=== PATIENT | female | born 1950 | race Caucasian/White ===

== ENCOUNTER 2016-08-03 06:52 | Outpatient (CLI) | payer MEDICARE, OTHER ==
[~2016-08-03] VITALS: Ht 160 cm; Wt 85.6 kg
--- NOTE | ~2016-08-03 | CATH ---
Cardiac Diagnostic Report Demographics Patient Name JARETH Morales Gender Female Date of 1950 Age 66 year(s) Patient Number [id number] Date of Study 08/03/2016 Visit Number [id number] Room Number G63[address] [place] [id number] Ht 160.02 cm Wt 85.6 kg Referring Marii AGUERO Primary Physician Physician Performing [facility] Secondary Physician Physician Angie MCMULLEN Diagnostic [facility] Assisting Physician Physician Angie MCMULLEN Interventional Physician Analysis Analyst Physician Findings and Conclusions Diagnostic Findings and Conclusion Mild non-obstructive CAD. 20% mid RCA stenosis. Proximal LAD stent patent. Diagnostic Recommendations Patient will be discharged later today. Follow up visit in 4 weeks at [facility] . Continue current medications. Patient has been instructed to not lift anything more than 5 pounds for 1 week. Optimize LV systolic function. Aggressive risk factor management. Aggressive medical therapy for coronary artery disease. Cardiac diet . Optimization of medical therapy as an outpatient. Procedure Description The patient was brought to the diagnostic cardiac catheterization-EP laboratory in the fasting, non-sedated state. Informed consent was obtained in the written and verbal form after the risks and benefits were explained. The patient had no further questions and agreed to proceed. The planned puncture-incision site(s) were shaved and prepped with ChloraPrep and draped in the usual sterile manner. Conscious sedation and supplemental oxygen were delivered by a registered nurse under physician guidance. Surface ECG rhythm, blood pressure measurement, and pulse oximetry were monitored throughout the procedure. Arterial access. The access site was infiltrated with lidocaine. The vessel was entered with the Seldinger technique. A sheath was advanced into the vessel and used for catheter placement. Selective left coronary angiography. A catheter was advanced into the left coronary vessel ostium under Fluoroscopic guidance. Contrast was injected by hand. Images were obtained in multiple projections. Selective right coronary angiography. A catheter was advanced into the right coronary vessel ostium under fluoroscopic guidance. Contrast was injected by hand. Images were obtained in multiple projections. Left heart catheterization. A catheter was advanced across the aortic valve to the left ventricle under fluoroscopic guidance. Resting hemodynamics were obtained. Arterial artery hemostasis was achieved. The patient was transferred to a regular nursing floor via cart accompanied by a nurse. The patient left the laboratory in stable condition. Procedure Procedure Type Diagnostic procedure:Angiography:, Coronary Angios w/[facility] Indications: Unstable angina. The procedure was explained in detail to the patient. Risks, complications and alternative treatments were reviewed. Written consent was obtained. Medications Reviewed with Patient prior to Procedure. Angiographic Findings Dominance: Right Cardiac Arteries and Lesion Findings LMCA: Normal (0% Stenosis). LAD: Normal (0% Stenosis).Diag normal.There is a previous stent on Prox LAD. LCx: Minor Luminal Irregularities.OM mild luminal irregularities. RCA: Single stenosis.PL normal. PDA normal. Lesion on Mid RCA: Mid subsection.25% stenosis . Coronary Tree Procedure Data Procedure Date Date: 08/03/2016Start: 09:08 AMEnd: 09:35 AM Entry Locations - Retrograde Percutaneous access was performed through the Right Radial artery (Primary location). A 6 Fr sheath was inserted. Hemostasis was successfully obtained using Mechanical Compression. Closure Comments: 14 ml of air in R. Band by Taye Figueredo.. Procedure Medications Order and Administration + + + + + !Time !Medication !Dosage !Route ! + + + + + !08/03/2016 08:54 AM !Oxygen !2 l/min !NC ! + + + + + !08/03/2016 09:09 AM !0.9% NaCl !500 ml !I.V. bolus ! + + + + + !08/03/2016 09:11 AM !Radial Verapamil !2.5 mg !I.A. ! + + + + + !08/03/2016 09:12 AM !Heparin (ACC_3) !5000 units !I.V. bolus ! + + + + + !08/03/2016 09:14 AM !Versed !1 mg !I.V. ! + + + + + Devices Used - A5 Fr. BS JR 4 Diag. Catheterwas used for:Right coronary angiography. - A5 Fr. BS JL 3.5 Diag. Catheterwas used for:Left coronary angiography. Contrast Material - Isovue 57381 ml Fluoroscopy Time: Diagnostic: 2:12 minutes. Total: 2:12 minutes. Fluoroscopy Dose: Diagnostic: 669 mGy. Total: 669 mGy. Estimated Blood Loss: 10 ml. Medical History Allergies - Other:(Ranexa). - Tape. Risk Factors The patient risk factors include:prior PCI on 09/07/2010;obesity, physical activity, treated hypercholesterolemia, treated hypertension, family history of premature CAD, orally-treated diabetes mellitus, last creatinine: 0.8 mg/dl, creatinine clearance: 94.74 ml/min, dyslipidemia, former tobacco use, prior heart failure and prior PR . Admission Data Admission Date: 08/03/2016 Admission Time: 06:52 AM Insurance Payors: Medicare. Admission Medications + +------+------+ + + + + !Medication !Dosage!Times !Last !Last !Administered !Comments ! ! ! !Per !Delivery !Delivery ! ! ! ! ! !Day !Date !Time ! ! ! + +------+------+ + + + + !Aspirin ! ! ! ! ! ! ! !(any) ! ! ! ! ! ! ! + +------+------+ + + + + !Beta ! ! ! ! ! ! ! !Jose Luis ! ! ! ! ! ! ! !(any) ! ! ! ! ! ! ! + +------+------+ + + + + !Statin ! ! ! ! ! ! ! !(any) ! ! ! ! ! ! ! + +------+------+ + + + + Clinical Evaluation Leading to Procedure - The patient's CAD presentation was assessed as: Unstable angina. - The patient's anginal syndrome during the past two weeks was assessed as: Class III according to the [place] Cardiovascular Society Classification System (CCS). Anti-anginal medications were prescribed during the past two weeks. The medications are: Beta Blockers, Ca channel Blockers and Long Acting Nitrates. - The patient has been in a state of heart failure within the past two weeks. - The patient's heart failure status was assessed as NYHA Class II, with CHF symptoms of COWAN. Hemodynamics Condition: Rest O2 Consumption: Estimated: 171.79Heart Rate: 63 bpm Pressures (mmHg) +-----+ + !Site !Pressure ! +-----+ + !LV !112/8 ,10 ! +-----+ + !LV !127/5 ,13 ! +-----+ + !LV !125/7 ,11 ! +-----+ + !AO !109/55 (78) ! +-----+ + !LV !121/4 ,11 ! +-----+ + !AO !110/49 (77) ! +-----+ + Valve Gradients and Areas + +---------+---------+---------+ +---------+ + !Valve !Peak !Mean !Area !Index !Flow !Source ! + +---------+---------+---------+ +---------+ + !Aortic !10 !8 ! ! ! ! ! + +---------+---------+---------+ +---------+ + !Aortic !10 !8 ! ! ! ! ! + +---------+---------+---------+ +---------+ + Shunts Oxygen Values O2 Capacity 179.52 O2 Consumption 171.79 Signatures dtt: ANGIE SAM dtd: 08/03/16 0908 Physician Self Edit
[~2016-08-03 06:52] MED LIST: ASPIRIN EC81 MG PO; CALCIUM 600 +1 EAC6 PO; DITROPAN5 MG PO; FLEXERIL10 MG PO; FLONASE 50 MCG/16 GM NOSE; GLUCOPHAGE850 M1 PO; GLUCOTROL XL10 MG PO; HYDROCODON-ACE1 EAC4 PO; IMDUR60 MG PO; KCL - MICRO-K10 MEQ PO; LASIX40 MG PO; LOPRESSOR25 MG PO; MOBIC7.5 MG PO; NITROSTAT0.4 MG SL; NORVASC5 MG PO; OMEPRAZOLE40 MG PO; PRAVACHOL40 MG PO; PROBIOTIC1 EAC1 PO; REQUIP1 MG PO; URSODIOL500 MG PO; VITAMIN D-40400 UNIT PO; ZYLOPRIM100 MG PO; [UNRECOGNIZED DRUG - OTHER] PO
[2016-08-03 07:39] LABS: INR - (THERAPEUTIC) 1.01 (0.92-1.07); PROTIME 10.6 SECONDS (9.8-11.4); PTT 26 SECONDS (25-32)
[2016-08-03 07:42] LABS: BASOPHIL # 0.1 K/uL (0.0-0.2); BASOPHIL % 0.9 %; EOSINOPHIL # 0.3 K/uL (0.0-0.5); EOSINOPHIL % 3.1 %; HEMATOCRIT 41.6 % (33.0-46.0); HEMOGLOBIN 13.2 g/dL (10.0-15.0); IMMATURE GRANULOCYTE # 0.2 K/uL (0.0-0.3); IMMATURE GRANULOCYTE % 1.7 %; LYMPHOCYTE # 2.7 K/uL (0.8-4.0); LYMPHOCYTE % 29.7 %; MCH 28.3 pg (27.0-34.0); MCHC 31.7 gm/dL (32.0-36.5); MCV 89.1 fl (83.0-98.0); MONOCYTE # 0.8 K/uL (0.0-1.0); MONOCYTE % 9.1 %; MPV 10.7 fl (9.4-12.4); NEUTROPHIL % 55.5 %; NRBC % 0 /100WBC (0-0.00); PLATELET COUNT 174 K/uL (150-450); RBC 4.67 M/uL (3.50-5.50); RDW-CV 14.1 % (11.9-14.6)
[2016-08-03 07:45] LABS: ALBUMIN 3.6 gm/dL (3.5-5.0); ALK PHOS 102 IU/L (33-138); ALT 34 IU/L (12-78); ANION GAP 8.8 (10.0-19.0); AST 23 IU/L (10-40); BLOOD UREA NITROGEN 16 mg/dL (6-24); CHLORIDE 106 mMol/L (96-110); CO2 31 mMol/L (22-32); CREATININE 0.8 mg/dL (0.5-1.1); POTASSIUM 3.8 mMol/L (3.7-5.1); SODIUM 142 mMol/L (135-145); TOTAL BILIRUBIN 0.4 mg/dL (0.0-1.5); TOTAL PROTEIN 6.9 g/dL (6.0-8.4)
[2016-08-03 07:49] LABS: ESTIMATED GFR (MDRD EQUATION) > 60
== END 2016-08-03 13:20 | disposition disaster alternative care site (69) ==
LOC: GCAT 06:52 → GPCU 06:52 → GPOC 07:00 → GCAT 13:20
PROVIDERS: Internal Medicine Interventional Cardiology
PROC: B2111ZZ Fluoroscopy of Multiple Coronary Arteries using Low Osmolar Contrast (ICD-10-PCS; principal; 2016-08-03)
PROC: 4A023N7 Measurement of Cardiac Sampling and Pressure, Left Heart, Percutaneous Approach (ICD-10-PCS; principal; 2016-08-03)
DX: I25.110 Atherosclerotic heart disease of native coronary artery with unstable angina pectoris (principal); I10 Essential (primary) hypertension; E11.9 Type 2 diabetes mellitus without complications; E78.00 Pure hypercholesterolemia, unspecified; I25.2 Old myocardial infarction; E66.9 Obesity, unspecified; Z87.891 Personal history of nicotine dependence; Z95.5 Presence of coronary angioplasty implant and graft; Z82.49 Family history of ischemic heart disease and other diseases of the circulatory system; R60.0 Localized edema; R00.2 Palpitations; Z79.82 Long term (current) use of aspirin; Z79.84 Long term (current) use of oral hypoglycemic drugs; Z79.1 Long term (current) use of non-steroidal anti-inflammatories (NSAID); Z79.891 Long term (current) use of opiate analgesic; Z79.899 Other long term (current) drug therapy
CPT/HCPCS: J1644; J2250; J2405; J3010